=== PATIENT | male | born 1950 | race Caucasian/White ===

== ENCOUNTER → 2016-07-01 | Outpatient (CLI) | payer OTHER ==
[~2016-07-01] MED LIST: ALBUAER INH; ASCA500 PO; ATOR10TA88 PO; FLVHFA110 INH; GLC500 PO; LISI10TA PO; MULT-506 PO; NXM/40 PO; SULI150T PO
[2016-07-01 13:28] VITALS: BP 97/57; PULSE 82; TEMP 36.8; O2SAT 92
--- NOTE | 2016-07-01 16:46 | Radiation Oncology Follow-Up ---
Radiation Oncology Follow-Up Date of Visit Jul 01, 2016. Reason For Visit Annual follow-up Radiation Completion Date seed implant on 07-29-2011 and external beam 10-30-2011 Diagnosis (1) Prostate cancer Status: Resolved Onset Date: 01/30/2011 Location: both lobes of the prostate Histology Subtype: adenocarcinoma Stage: ll Permanent Comment: History of superficial bladder cancer treated with no recurrence Fluctuating PSA. Multiple negative biopsies Rising PSA. Pretreatment PSA 10.7 to Clinical stage T2b Status post ultrasound-guided biopsies. Biopsy stage T2b Yenny grade 3+4 Status post 6 months of hormonal suppression Status post seed implant with cesium 131 on 07/29/2011 received 85 Gy Status post completion of external beam radiation on 10/30/2011 received 45 Gy Last Edited By: Elmira Traore on Jul 02, 2015 13:34 Interim History He is been doing well over this past year. He gave an AUA score of 9. He does not require any medication to help with urination. He completed expanded prostate cancer index composite for clinical practice and gave a score of 0 of 12 urinary incontinence symptoms. He gave a score of 212 urinary irritation symptoms. He gave a score of 0 12 in bowel symptoms. He gave a score of 6 of 12 sexual symptoms. He gave a score of 2 of 12 and hormonal vitality symptoms. His total was 10 of 60. He has a prior history of bladder cancer. He has recheck scoping's with Dr. Berger. He stated that his scoping's are now every 2 years. He had been given an order for a PSA which she had performed on 06/15/2016. And this was less than 0.02. Allergies Coded Allergies: No Known Allergies (Verified , 07/20/02) Home Medications Scheduled Albuterol (Proventil Hfa), 2 PUFF INH PRN Ascorbic Acid (Vitamin C *), 500 MG PO DAILY Atorvastatin (Lipitor), 10 MG PO DAILY Esomeprazole Magnesium (Nexium), 40 MG PO DAILY Fluticasone Propionate (Flovent Hfa 110MCG Inhaler *), 2 PUFF INH BID Lisinopril (Prinivil), 10 MG PO DAILY Metformin Hcl (Glucophage *), 500 MG PO BID Multivitamin (Multivitamin), 1 TAB PO DAILY Sulindac (Clinoril), 150 MG PO BID Review of Systems Gastrointestinal: Symptoms: Constipation GI Comments: occ constipation Oral: Symptoms: No Problems Respiratory: Symptoms: SOB With Exertion, Productive Cough Sputum Character: clear Other Respiratory: " my left lung does not work properly " Urinary: Symptoms: Nocturia Comments: nocturia times 2 - 3 , touble starting stream at times Skin: Symptoms: No Problems Physical Exam Vital Signs Date Time Temp Pulse Resp B/P Pulse Ox O2 Delivery O2 Flow Rate FiO2 07/01/16 13:28 36.8 82 20 97/57 92 Pain: Side: Bilateral Patient Pain Scale: 0 - 10 Initial Pain Intensity: 0.0 Fatigue: None General Appearance: no apparent distress Eyes: normal inspection, EOMI ENT: normal ENT inspection, hearing grossly normal Neck: no adenopathy, thyroid normal Respiratory/Chest: lungs clear, no respiratory distress, no accessory muscle use Cardiovascular: regular rate, rhythm, no gallop, no murmur Abdomen: non tender, soft Anal / Rectum: Normal sphincter tone. Prostate consistent with seed implant. No rectal masses no rectal bleeding. Extremities: no pedal edema Neurologic/Psychiatric: no motor/sensory deficits, alert, normal mood/affect Skin: warm/dry Lymphatic: no adenopathy Laboratory Studies He had a PSA 06/25/2016 that was less than 0.02. Assessment & Plan Plan: Continue regular follow-up with Dr. Berger and Dr. Weaver. I've given him an order for a PSA next year. We reviewed the PSA value. We asked him to return to our office in 1 year. He may call if he has questions or concerns in the interim. Total Time In Follow-Up I spent 20 minutes speaking to the patient performing examination. I spent 15 minutes reviewing information and completing this note. Copy To Santi Berger MD; Jos Weaver M.D.
== END | disposition home or self-care (01) ==
LOC: C.ONC 13:11
PROVIDERS: ATTEND Radiology Radiation Oncology
DX: Z08 Encounter for follow-up examination after completed treatment for malignant neoplasm (principal); Z92.3 Personal history of irradiation; Z85.46 Personal history of malignant neoplasm of prostate

== ENCOUNTER → 2016-10-05 | Outpatient (CLI) | payer OTHER ==
[~2016-10-05] MED LIST changes: +ATOR10TA82 PO; -ATOR10TA88 PO
--- NOTE | 2016-10-12 14:28 | CODING QUERY MEDICAL NECESSITY ---
CQSUPPORTING DIAGNOSIS NEEDED A supporting diagnosis is required for the test/procedure performed on this patient in order for us to be reimbursed by the patient's insurance. Please provide a supporting diagnosis for the following test/procedure listed below next to the test name along with your signature. *If there is no additional diagnosis for this patient that would support the following test/procedure please document that below next to the test/procedure. Test(s)/Procedure(s) that require a supporting diagnosis: DOS 10/05/16 BONE MINERAL DENSITY STUDY ORDERED BY RAQUEL MCBRIDE Provider Signature: Date: Thank you Estephania Robin Health Information Management Once completed, please kindly fax back to [phone] For questions please call [phone]
== END | disposition home or self-care (01) ==
LOC: C.MAMM 08:55
PROVIDERS: ATTEND Physician Assistant Medical
DX: C61 Malignant neoplasm of prostate (principal); T38.905 Adverse effect of unspecified hormone antagonists; E34.9 Endocrine disorder, unspecified

== ENCOUNTER → 2017-06-29 | Outpatient (CLI) | payer OTHER ==
[2016-07-01 13:28] VITALS: BP 97/57; PULSE 82
[2017-06-29 13:21] VITALS: BP 137/85; PULSE 88; TEMP 36.8; O2SAT 95
--- NOTE | 2017-06-29 14:14 | Radiation Oncology Follow-Up ---
Radiation Oncology Follow-Up Date of Visit Jun 29, 2017. Reason For Visit Annual follow-up Radiation Completion Date Seed implant 07/29/11 and external beam 10/30/11;Hormonal suppression; Diagnosis (1) Prostate cancer Status: Resolved Onset Date: 01/30/2011 Location: both lobes of the prostate Histology Subtype: adenocarcinoma Stage: ll Permanent Comment: History of superficial bladder cancer treated with no recurrence Fluctuating PSA. Multiple negative biopsies Rising PSA. Pretreatment PSA 10.7 to Clinical stage T2b Status post ultrasound-guided biopsies. Biopsy stage T2b Yenny grade 3+4 Status post 6 months of hormonal suppression Status post seed implant with cesium 131 on 07/29/2011 received 85 Gy Status post completion of external beam radiation on 10/30/2011 received 45 Gy Last Edited By: Elmira Traore on Jul 02, 2015 13:34 Interim History He's been doing well over this past year. He denies any difficulty with urination. He gave an AUA score of 5. Last year he gave a score of 9. He completed and expanded prostate cancer index composite for clinical practice. He gave a 2 of 12 and urinary incontinence symptoms. He gave a score of 2 of 12 in urinary irritation symptoms. He gave a score of 212 and bowel symptoms. He gave a score of 3 of 12 and sexual symptoms. He gave a score to 12 and hormonal vitality symptoms. His total was 11 of 60. He has had recheck PSAs and on 06/15/2016 the PSA was less than 0.02. On 04/07/2017 as well as 2016 PSAs were less than 0.02. These are being followed by his primary care physician. He also follows with Dr. Berger in regards to the history of bladder cancer. He's had no hematuria. Allergies Coded Allergies: No Known Allergies (Verified , 07/20/02) Home Medications Scheduled Albuterol (Proventil Hfa), 2 PUFF INH PRN Ascorbic Acid (Vitamin C *), 500 MG PO DAILY Atorvastatin (Lipitor), 10 MG PO DAILY Esomeprazole Magnesium (Nexium), 40 MG PO DAILY Fluticasone Propionate (Flovent Hfa 110MCG Inhaler *), 2 PUFF INH BID Lisinopril (Prinivil), 10 MG PO DAILY Metformin Hcl (Glucophage *), 500 MG PO BID Multivitamin (Multivitamin), 1 TAB PO DAILY Sulindac (Clinoril), 150 MG PO BID Review of Systems Gastrointestinal: Symptoms: WNL GI Comments: Takes metamucil Oral: Symptoms: No Problems Respiratory: Symptoms: Dry Cough Sputum Character: clear Other Respiratory: Relates this to known problem with his left lung-not new Urinary: Symptoms: WNL Comments: ;2voids/night Skin: Symptoms: No Problems Physical Exam Vital Signs Date Time Temp Pulse Resp B/P (MAP) Pulse Ox O2 Delivery O2 Flow Rate FiO2 06/29/17 13:21 36.8 88 20 137/85 95 General Appearance: no apparent distress Eyes: normal inspection, EOMI ENT: normal ENT inspection, hearing grossly normal Respiratory/Chest: lungs clear, no respiratory distress, no accessory muscle use Cardiovascular: regular rate, rhythm, no gallop, no murmur Abdomen: non tender, soft, no organomegaly Anal / Rectum: Mildly decreased sphincter tone. Prostate consistent with seed implant. No rectal masses no rectal bleeding. Extremities: no pedal edema Pain Management Patient Reports Pain: No Side: Bilateral Patient Preferred Pain Scale: 0 - 10 Initial Pain Intensity: 0.0 Pain Management Plan He denied pain therefore requires no pain management. Laboratory Laboratory Results: were reviewed Laboratory Comments: Discussed in the interim history. Pathology Pathology Results: not applicable Imaging Imaging Studies: not applicable Assessment & Plan Plan: Continue follow-up PSAs through the primary care physician. He'll call Dr. Berger's office and schedule a follow-up appointment. A follow-up appointment with our office was not given. He may continue his prostate and bladder follow-up through Dr. Berger's office. He may call our office if he has any questions or concerns would be happy to see him. Total Time In Follow-Up I spent 20 minutes speaking to the patient performing examination. I said 15 minutes reviewing information and completeness note. Copy To Santi Berger MD; Jos Weaver M.D.
== END | disposition home or self-care (01) ==
LOC: C.ONC 13:15
PROVIDERS: ATTEND Physician Assistant Medical
DX: Z08 Encounter for follow-up examination after completed treatment for malignant neoplasm (principal); Z92.3 Personal history of irradiation; Z85.46 Personal history of malignant neoplasm of prostate